=== PATIENT | female | born 1950 | race Caucasian/White ===

== ENCOUNTER 2020-06-07 15:01 | IRF | payer MEDICARE, OTHER, SELFPAY ==
[2020-06-07 15:05] VITALS: BP 115/59; PULSE 65; RESP 18; TEMP 36.4; O2SAT 95; BMI 28.4
--- NOTE | 2020-06-07 15:35 | ADMGEN ---
This patient, Poly Randle, was admitted to [facility] Room 222-02. Patient/family oriented to hospital policies and general routines including ID bracelet, bed and alarms, visiting hours, pain management, procedures, bathroom and other care routines, personal items, smoking policy, room service/diet, and visiting hours. Valuables list has been completed. Information on how to activate the Rapid Response Team has been discussed. Patient/Family are encouraged to report perceived risks to care and to ask questions if they do not understand what they are told or what they should do. Patient arrived via ambulance in no distress. She alert to person, place and time. Daughter is at bedside with her, but patients will be the designated visitor. Daughter is also medical POA Oriented to room and [facility] day to day activities, verbalized understanding
[2020-06-07 16:00] VITALS: BMI 28.4
[2020-06-07] MEDS: ATORVASTATIN 40 MG TABLET PO (20:10)
[2020-06-07 22:00] VITALS: BP 112/64; PULSE 69; RESP 18; TEMP 36.6; O2SAT 94
[2020-06-08 06:00] VITALS: BP 124/52; PULSE 69; RESP 20; TEMP 36.1; O2SAT 98
[2020-06-08 06:35] LABS: Basophils Percent Auto 0.4 % (0.2-1.2); Eosinophils Absolute Auto 0.2 K/mm3 (0-0.3); Eosinophils Percent Auto 2.3 % (0-4.4); Hematocrit 40.4 % (37.0-47.0); Hemoglobin 13.5 g/dL (12.0-15.0); Immature Granulocyte Absolute 0.02 K/mm3 (0.00-0.031); Immature Granulocyte Percent A 0.3 % (0-0.5); Lymphocytes Absolute Auto 3.06 K/mm3 (0.9-3.2); Lymphocytes Percent Auto 41.4 % (18.3-44.2); Mean Corpuscular HGB Conc 33.4 g/dl (32-36); Mean Corpuscular Hemoglobin 31.6 pg (26-34); Mean Corpuscular Volume 94.6 fl (80-100); Mean Platelet Volume 9.7 fl (7.4-10.4); Monocytes Absolute Auto 0.6 K/mm3 (0.1-0.6); Monocytes Percent Auto 8.5 % (2.6-8.5); Neutrophils Absolute Auto 3.5 K/mm3 (1.3-6.7); Neutrophils Percent Auto 47.1 % (45.5-73.1); Platelet Count Result 191 k/mm3 (150-375); Red Blood Count 4.27 M/mm3 (4.2-5.4); Red Cell Distribution Width 11.8 % (11.5-14.5); White Blood Count 7.4 K/mm3 (4.5-10.0)
[2020-06-08 06:39] LABS: Anion Gap 6 mmol/L (8-16); Blood Urea Nitrogen 22 mg/dL (7-17); Calcium 9.4 mg/dL (8.4-10.2); Carbon Dioxide 30 mmol/L (22-30); Chloride 104 mmol/L (98-107); Estimated CRCL calculation 47 ml/min; Estimated Glomerular Filt Rate > 60; Glucose 102 mg/dL (65-105); Potassium 4.1 mmol/L (3.4-5.0); Sodium 140 mmol/L (137-145)
[2020-06-08 08:00] VITALS: PULSE 68; RESP 20; O2SAT 99
[2020-06-08] MEDS: lisinopriL 10 MG TABLET PO (10:03)
[2020-06-08] MEDS: ASPIRIN 81 MG CHEWABLE TABLET PO (10:03)
[2020-06-08] MEDS: CHOLECALCIFEROL 1,000 UNITS TABLET 1000 UNITS PO (10:04)
[2020-06-08] MEDS: VITAMIN E 400 UNIT CAPSULE PO (10:04)
[2020-06-08] MEDS: MULTIVITAMINS /C LUTEIN (CENTRUM SILVER) TABLET *BKC 1 TAB PO (10:04)
[2020-06-08] MEDS: CLOPIDOGREL BISULFATE 75 MG TABLET PO (10:04)
--- NOTE | 2020-06-08 11:00 | PM.IMHP ---
H&P: HPI History of Present Illness Date/Time: 06/08/20 16:02 Chief complaint: cva Narrative: Poly Randle is a 70 year old female The primary rehab impairment category is stroke The/ diagnosis lacunar infarct in the right lentiform nucleus. The patient was seen [id number] at 11:00 a.m. on June 08, 2020 This 70-year-old woman with a past medical history of irritable bowel syndrome, GERD and osteoporosis who presented to [facility] on May 31, 2020 for an acute onset of left facial droop, left-sided weakness and aphasia. The head CT was without evidence of hemorrhage. Head and neck CTA did not show any obvious large vessel occlusions. Tele Neurology was consulted and recommended tPA. Following the tPA administration who was recommended by the tele neuro radiologist rather tele neurologist patient experience pain across her entire lower back. She was admitted to ICU with Neurology was consulted. Noncontrast CT of the abdomen /pelvis was notable for pancreatic stranding distended bladder small volume free fluid in the pelvis. A repeat head CT showed a subacute lacunar infarct in the right lentiform nucleus. The bats side swallow test evaluation of the patient demonstrated consistent clinical signs and symptoms of penetration /aspiration on 100% of thick and thin liquids. Liquid trials. This was followed up with modified barium swallow on June 03, 2020 and this showed mild oropharyngeal dysphagia or dysphagia characterized by the left facial weakness and occasional anterior loss. There is decreased laryngeal elevation / X question, incomplete epiglottic inversion, incomplete laryngeal vestibule closure, mild -severe pharyngeal residue with thin liquids watch assisting in clearing the severe residue. Only flash penetration observed at times no aspiration. Patient was placed on mechanically altered solids dysphagia level 2 and thin liquids. Speech therapy also encouraged frequent liquid wash to clear for Viktoriya residue. Physical residual include left facial droop, left-sided weakness, dysarthria and dysphagia. The patient is awake and alert x3. The patient will be discharged to [facility] and dual anti-platelet therapy of aspirin 80 milligram and Plavix for 3 weeks with plan to discontinue Plavix and the patient to remain on aspirin 81 milligram daily. Therapy was initiated at the acute care facility and the patient was transferred to us from [place] so fell on on June 07, 2020. The patient has had no major surgery in the past 10 days. Patient has had no falls in the past year. The patient has had no falls with injury in the past year Past medical history, arthritis, degenerative intervertebral thoracic disease, diverticulitis, irritable bowel syndrome, osteoporosis, a fusion of the right knee, gallbladder disease, GERD, him arthrosis, hiatal hernia, and paresthesia Past surgical history adenoidectomy and anal sphincteroplasty, appendectomy, back surgery, left breast lumpectomy x2, cardiac catheterization, bilateral cataract extraction, cholecystectomy, colonoscopy with several polyps removed, hysterectomy, repair of rectocele and tonsillectomy. Social history Patient is and spouse is name is ROSSI ruiz. They have 3 children. Patient is a retired [employer]. Patient enjoys exercising daily of yoga and walking on the treadmill. Patient denies alcohol tobacco or illicit use of drugs. Patient lives with her who had recent knee replacement in a store 1 story home with the basement and 3 steps to enter. Patient was totally independent prior to the stroke and in all spheres of activities of daily living. Family history, mother had Alzheimer's and CVA. Father had leukemia and so rest of the liver. Sister had breast cancer, leukemia, and brain cancer. Brother had colon cancer, diabetes, hypertension, and kidney disease. Current level of function, eating is partial moderate, oral care is partial mod
[2020-06-08 13:25] VITALS: BMI 28.4
[2020-06-08 14:00] VITALS: BP 129/70; PULSE 71; RESP 20; TEMP 36.8; O2SAT 99
--- NOTE | 2020-06-08 14:38 | PCNSR ---
On 06/08/20, the student, Tiffanie Whitmore, provided care and completed [facility] documentation on this patient. I have reviewed the student's documentation and agree with the findings.
[2020-06-08] MEDS: polyethylene glycoL 3350 17 GM POWD.PACK PO (14:53)
[2020-06-08] MEDS: ENOXAPARIN 40 MG/0.4 ML SYRINGE SUB-Q (18:46)
[2020-06-08 20:00] VITALS: PULSE 70; RESP 18; O2SAT 97
[2020-06-08] MEDS: ATORVASTATIN 40 MG TABLET PO (20:08)
[2020-06-08 21:40] VITALS: BP 115/40; PULSE 70; RESP 18; TEMP 36.4; O2SAT 97
[2020-06-09 05:03] VITALS: BP 118/56; PULSE 67; RESP 18; TEMP 36.2; O2SAT 97
[2020-06-09 05:29] LABS: Cholesterol 104 mg/dL (0-200); HDL Direct 42 mg/dL; Triglycerides 122 mg/dL (<150)
[2020-06-09 05:42] LABS: LDL Cholesterol Direct 49 mg/dL
[2020-06-09] MEDS: lisinopriL 10 MG TABLET PO (09:04)
[2020-06-09] MEDS: ENOXAPARIN 40 MG/0.4 ML SYRINGE SUB-Q (09:04)
[2020-06-09] MEDS: ASPIRIN 81 MG CHEWABLE TABLET PO (09:04)
[2020-06-09] MEDS: MULTIVITAMINS /C LUTEIN (CENTRUM SILVER) TABLET *BKC 1 TAB PO (09:04)
[2020-06-09] MEDS: CHOLECALCIFEROL 1,000 UNITS TABLET 1000 UNITS PO (09:04)
[2020-06-09] MEDS: CLOPIDOGREL BISULFATE 75 MG TABLET PO (09:04)
[2020-06-09] MEDS: polyethylene glycoL 3350 17 GM POWD.PACK PO (09:04)
[2020-06-09] MEDS: VITAMIN E 400 UNIT CAPSULE PO (09:05)
[2020-06-09 14:00] VITALS: BP 116/57; PULSE 76; RESP 20; TEMP 36.6; O2SAT 99
--- NOTE | 2020-06-09 14:54 | RPD ---
INDIVIDUALIZED PLAN OF CARE FOR Poly Randle Brief Synthesis of Pre-Admission Screen, Post-Admission Evaluation and Therapy Evaluations: The patient presents to rehab with a lacunar infarct in the right lentiform nucleus. Comorbidities include s/p tPA, dysphagia, left-sided facial droop, left-side hemiparesis, dysarthria, arthritis, degenerative disc disease, diverticulititis, irritable bowel syndrome, osteoporosis, and GERD. The complexity of the patient's medical management, nursing, and therapy needs require an inpatient rehab hospital stay with a physician-led interdisciplinary team approach. The patient?s needs will be best met in an intensive program vs. at a lower level of care. The patient requires physician services for neurology services, medical oversight, and coordination of care. The patient needs physician monitoring and treatment of hypertension, dysphagia, left-side hemiparesis, dysarthria, monitoring for adverse reactions to new medications, monitoring for infection, and pain control. The patient requires nursing services for frequent neuro checks, anticoagulation therapy, medication management and education, pressure relief and skin care management, monitoring of labs, bowel and bladder training, and fall/safety precautions. Deficits include:ADLs, Balance, Cognition, Endurance, Family Training/Education, Mobility, Pain Management, ROM, Safety, Speech, Strength, Swallowing, and Transfers. Pearler/Case Management for: Discharge Planning and Patient/Family Counseling Physical Therapy: 5 days per week for 75 minutes. Treatments may include: Therapeutic Exercise, Gait Training, Neuromuscular Re-education, Transfer Training, Community Reintegration, Bed Mobility, Patient/Family Education, Wheelchair Mobility Group Therapy/Concurrent Therapy Rationales: -Improve attention span during functional activities in a distracted environment. -Enhance problem solving and/or adequate judgment skills during functional activities in a distracted environment. -Promote increased safety awareness in a distracted environment to reduce fall risk with functional tasks, transfers, and ambulation to allow a more safe, self-sufficient return to the home environment. -Improve dynamic balance skills to promote safety and independence with functional activities in a distracted environment for maximum gain. Occupational Therapy: 5 days per week for 75 minutes. Treatments may include: Therapeutic Exercise, Therapeutic Activity, Cognitive Training, Self-Care Transfer Training, Community Reintegration, Home Management, Patient/Family Education, Wheelchair Mobility Training, Energy Conservation Training Group Therapy/Concurrent Therapy Rationales: -Allow therapist to observe and teach generalization and carry-over of skills learned in individual therapy. -Enhance problem solving and sequencing skills during therapeutic activities in a distracted environment. -Promote increased safety awareness in a realistic setting to reduce fall risk with functional tasks due to visual and verbal distractions. -Increase functional level with ADLs, ADL transfers and use of adaptive equipment through therapeutic activities with others while promoting safety to allow a more safe, self-sufficient return home. Speech Therapy: 5 days per week for 30 minutes. Treatments may include: Dysphasia Therapy, Speech/Language/Communication Therapy, Cognitive Training, Patient/Family Education Group Therapy/Concurrent Therapy - Rationale: -Allow therapist to observe and teach generalization and carry-over of skills learned in individual therapy. -Improve comprehension skills with complex or abstract ideas through discussion in a realistic setting. -Enhance problem solving skills with complex issues during activities in a distracted environment. -Promote increased memory skills and concentration in a distracted environment for a safe transition home. -Improve attention and focus with language/communicatio
[2020-06-09] MEDS: ATORVASTATIN 40 MG TABLET PO (20:38)
[2020-06-09 22:00] VITALS: BP 115/48; PULSE 77; RESP 17; TEMP 36.7; O2SAT 100
[2020-06-10 06:00] VITALS: BP 123/48; PULSE 75; RESP 18; TEMP 36.3; O2SAT 96
[2020-06-10 08:30] VITALS: PULSE 76; RESP 18; O2SAT 96
[2020-06-10] MEDS: CLOPIDOGREL BISULFATE 75 MG TABLET PO (08:30)
[2020-06-10] MEDS: CHOLECALCIFEROL 1,000 UNITS TABLET 1000 UNITS PO (08:30)
[2020-06-10] MEDS: VITAMIN E 400 UNIT CAPSULE PO (08:30)
[2020-06-10] MEDS: MULTIVITAMINS /C LUTEIN (CENTRUM SILVER) TABLET *BKC 1 TAB PO (08:30)
[2020-06-10] MEDS: ASPIRIN 81 MG CHEWABLE TABLET PO (08:30)
[2020-06-10] MEDS: polyethylene glycoL 3350 17 GM POWD.PACK PO (08:30)
[2020-06-10] MEDS: lisinopriL 10 MG TABLET PO (08:31)
[2020-06-10] MEDS: ENOXAPARIN 40 MG/0.4 ML SYRINGE SUB-Q (08:31)
--- NOTE | 2020-06-10 11:59 | WPDNEURORHBP ---
Subjective Date/time seen: 06/10/20 11:59 Interval history: this 70-year-old woman is here with left-sided hemiparesis after having had stroke she has relatively more strength in the left leg compared to the left arm and we will start the electrical stimulation she denies any headache nausea vomiting chest pain shortness of breath fever chills sore throat Review of Systems Review of Systems: All systems reviewed & are unremarkable except as noted in HPI and below Functional Status Ambulation Ability Ability to Ambulate 10 Feet: Minimum Assistance X 1 Ability to Ambulate 50 Feet With 2 Turns: Minimum Assistance X 1 Ambulation Assistive Devices: Cane, Eb Exam Const: General: comfortable and no acute distress HENMT: General nose exam: Normal nares present Mouth: Yes moist mucous membranes Eyes: General: appearance normal, both eyes and all related structures Neck: Neck: supple and no JVD Resp: Effort & Inspection: normal respiratory effort Auscultation: clear to auscultation bilaterally Cardio: Rate: regular rate Rhythm: regular rhythm GI: GI Palp: Yes Soft to palpation Auscultation: normal bowel sounds Skin: General skin exam: normal color and no rashes or lesions noted Neuro: Other: patient is awake and alert well oriented follows all commands with moderately severe left-sided hemiparesis needing assistance in all the activities of daily living Extrem: General: normal to inspection Psych: Mental Status: mental status grossly normal Objective Data Vital Signs Vital Signs: Vital Signs - 24 hr 06/09/20 14:00 06/09/20 22:00 06/10/20 06:00 Temperature 36.6 C 36.7 C 36.3 C L Pulse Rate 76 77 75 Respiratory Rate 20 17 18 Blood Pressure 116/57 L 115/48 L 123/48 L Pulse Oximetry 99 100 96 06/10/20 08:30 Temperature Pulse Rate 76 Respiratory Rate 18 Blood Pressure Pulse Oximetry 96 Intake/Output Intake/Output: Intake & Output 06/07/20 06/08/20 06/09/20 06/10/20 23:59 23:59 23:59 23:59 Intake Total 720 720 240 Balance 720 720 240 Meds/Results Medications: Active Medications Generic Name Dose Route Start Last Admin Trade Name Freq PRN Reason Stop Dose Admin Aspirin 81 mg 06/08/20 09:00 06/10/20 08:30 Aspirin Chewable PO 81 mg DAILY RJ Administration Atorvastatin Calcium 40 mg 06/07/20 21:00 06/09/20 20:38 Lipitor PO 40 mg HS RJ Administration Clopidogrel Bisulfate 75 mg 06/08/20 09:00 06/10/20 08:30 Plavix PO 75 mg DAILY RJ Administration Enoxaparin Sodium 40 mg 06/09/20 09:00 06/10/20 08:31 Lovenox SUB-Q 40 mg DAILY RJ Administration Lisinopril 10 mg 06/08/20 09:00 06/10/20 08:31 Prinivil PO 10 mg DAILY RJ Administration Multivitamins/Minerals 1 tab 06/08/20 09:00 06/10/20 08:30 Centrum Silver PO 1 tab DAILY RJ Administration Polyethylene Glycol 17 gm 06/08/20 09:00 06/10/20 08:30 Miralax PO 17 gm QAM RJ Administration Vitamin D 1,000 units 06/08/20 09:00 06/10/20 08:30 Vitamin D PO 1,000 units DAILY RJ Administration Vitamin E 400 unit 06/08/20 09:00 06/10/20 08:30 Vitamin E PO 07/08/20 09:01 400 unit DAILY RJ Administration Progress Note: A&P Assessment and Plan (1) GERD (gastroesophageal reflux disease): Code(s): K21.9 - Gastro-esophageal reflux disease without esophagitis Status: Acute (2) Irritable bowel syndrome: Code(s): K58.9 - Irritable bowel syndrome without diarrhea Status: Acute (3) Dysarthria: Code(s): R47.1 - Dysarthria and anarthria Status: Acute (4) Left hemiparesis: Code(s): G81.94 - Hemiplegia, unspecified affecting left nondominant side Status: Acute (5) Stroke: Code(s): I63.9 - Cerebral infarction, unspecified Status: Acute Additional Plan we will continue the medical management PT OT and speech
[2020-06-10 14:00] VITALS: BP 132/57; PULSE 78; RESP 18; TEMP 36.3; O2SAT 97
[2020-06-10 20:00] VITALS: O2SAT 98
[2020-06-10] MEDS: ATORVASTATIN 40 MG TABLET PO (20:29)
[2020-06-10 21:47] VITALS: BP 117/87; PULSE 75; RESP 18; TEMP 36.7; O2SAT 98
[2020-06-11 06:00] VITALS: BP 119/52; PULSE 75; RESP 18; TEMP 36.3; O2SAT 98
[2020-06-11] MEDS: ASPIRIN 81 MG CHEWABLE TABLET PO (08:57)
[2020-06-11] MEDS: CLOPIDOGREL BISULFATE 75 MG TABLET PO (08:57)
[2020-06-11] MEDS: CHOLECALCIFEROL 1,000 UNITS TABLET 1000 UNITS PO (08:57)
[2020-06-11] MEDS: ENOXAPARIN 40 MG/0.4 ML SYRINGE SUB-Q (08:57)
[2020-06-11] MEDS: polyethylene glycoL 3350 17 GM POWD.PACK PO (08:58)
[2020-06-11] MEDS: MULTIVITAMINS /C LUTEIN (CENTRUM SILVER) TABLET *BKC 1 TAB PO (08:58)
[2020-06-11] MEDS: lisinopriL 10 MG TABLET PO (08:58)
[2020-06-11] MEDS: VITAMIN E 400 UNIT CAPSULE PO (08:58)
[2020-06-11 14:00] VITALS: BP 121/90; PULSE 65; RESP 18; TEMP 36.3; O2SAT 98
[2020-06-11 20:00] VITALS: O2SAT 99
[2020-06-11] MEDS: ATORVASTATIN 40 MG TABLET PO (20:15)
[2020-06-11] MEDS: ACETAMINOPHEN 500 MG TABLET PO (20:28)
[2020-06-11 21:57] VITALS: BP 138/37; PULSE 77; RESP 16; TEMP 36.7; O2SAT 99
[2020-06-12 06:00] VITALS: BP 108/47; PULSE 69; RESP 16; TEMP 36; O2SAT 95
[2020-06-12] MEDS: CHOLECALCIFEROL 1,000 UNITS TABLET 1000 UNITS PO (08:51)
[2020-06-12] MEDS: CLOPIDOGREL BISULFATE 75 MG TABLET PO (08:51)
[2020-06-12] MEDS: ASPIRIN 81 MG CHEWABLE TABLET PO (08:51)
[2020-06-12] MEDS: MULTIVITAMINS /C LUTEIN (CENTRUM SILVER) TABLET *BKC 1 TAB PO (08:52)
[2020-06-12] MEDS: lisinopriL 10 MG TABLET PO (08:52)
[2020-06-12] MEDS: ENOXAPARIN 40 MG/0.4 ML SYRINGE SUB-Q (08:52)
[2020-06-12] MEDS: polyethylene glycoL 3350 17 GM POWD.PACK PO (08:52)
[2020-06-12] MEDS: VITAMIN E 400 UNIT CAPSULE PO (08:52)
[2020-06-12 14:00] VITALS: BP 133/94; PULSE 85; RESP 20; TEMP 36.7; O2SAT 96
--- NOTE | 2020-06-12 17:11 | WPDNEURORHBP ---
Subjective Date/time seen: 06/12/20 17:11 Interval history: this 70-year-old is here with stroke and the left-sided hemiparesis from which she is improving she is happy with the progress however the left arm is not progressing as well as the left leg she denies any headache nausea vomiting chest pain shortness of breath fever chills sore throat Review of Systems Review of Systems: All systems reviewed & are unremarkable except as noted in HPI and below Functional Status Ambulation Ability Ability to Ambulate 10 Feet: Moderate Assistance X 1 Ability to Ambulate 50 Feet With 2 Turns: Minimum Assistance X 1 Ambulation Assistive Devices: Cane, Eb Transfers Ability Ability to Transfer In/Out of Chair: Minimum Assistance X 1 Exam Const: General: comfortable and no acute distress HENMT: General nose exam: Normal nares present Mouth: Yes moist mucous membranes Eyes: General: appearance normal, both eyes and all related structures Neck: Neck: supple and no JVD Resp: Effort & Inspection: normal respiratory effort Auscultation: clear to auscultation bilaterally Cardio: Rate: regular rate Rhythm: regular rhythm GI: GI Palp: Yes Soft to palpation Auscultation: normal bowel sounds Skin: General skin exam: normal color and no rashes or lesions noted Neuro: Other: patient is awake and alert well oriented with improving eb hemiparesis Extrem: General: normal to inspection Psych: Mental Status: mental status grossly normal Objective Data Vital Signs Vital Signs: Vital Signs - 24 hr 06/11/20 20:00 06/11/20 21:57 06/12/20 06:00 Temperature 36.7 C 36.0 C L Pulse Rate 77 69 Respiratory Rate 16 16 Blood Pressure 138/37 L 108/47 L Pulse Oximetry 99 99 95 06/12/20 14:00 Temperature 36.7 C Pulse Rate 85 Respiratory Rate 20 Blood Pressure 133/94 H Pulse Oximetry 96 Intake/Output Intake/Output: Intake & Output 06/09/20 06/10/20 06/11/20 06/12/20 23:59 23:59 23:59 23:59 Intake Total 720 720 720 480 Balance 720 720 720 480 Meds/Results Medications: Active Medications Generic Name Dose Route Start Last Admin Trade Name Freq PRN Reason Stop Dose Admin Acetaminophen 500 mg 06/11/20 20:19 06/11/20 20:28 Tylenol Tablet PO 500 mg Q6H PRN Administration Mild Pain (1-3) or Fever Aspirin 81 mg 06/08/20 09:00 06/12/20 08:51 Aspirin Chewable PO 81 mg DAILY RJ Administration Atorvastatin Calcium 40 mg 06/07/20 21:00 06/11/20 20:15 Lipitor PO 40 mg HS RJ Administration Clopidogrel Bisulfate 75 mg 06/08/20 09:00 06/12/20 08:51 Plavix PO 75 mg DAILY RJ Administration Enoxaparin Sodium 40 mg 06/09/20 09:00 06/12/20 08:52 Lovenox SUB-Q 40 mg DAILY RJ Administration Lisinopril 10 mg 06/08/20 09:00 06/12/20 08:52 Prinivil PO 10 mg DAILY RJ Administration Multivitamins/Minerals 1 tab 06/08/20 09:00 06/12/20 08:52 Centrum Silver PO 1 tab DAILY RJ Administration Polyethylene Glycol 17 gm 06/08/20 09:00 06/12/20 08:52 Miralax PO 17 gm QAM RJ Administration Vitamin D 1,000 units 06/08/20 09:00 06/12/20 08:51 Vitamin D PO 1,000 units DAILY RJ Administration Vitamin E 400 unit 06/08/20 09:00 06/12/20 08:52 Vitamin E PO 07/08/20 09:01 400 unit DAILY RJ Administration Progress Note: A&P Assessment and Plan (1) GERD (gastroesophageal reflux disease): Code(s): K21.9 - Gastro-esophageal reflux disease without esophagitis Status: Acute (2) Irritable bowel syndrome: Code(s): K58.9 - Irritable bowel syndrome without diarrhea Status: Acute (3) Dysarthria: Code(s): R47.1 - Dysarthria and anarthria Status: Acute (4) Left hemiparesis: Code(s): G81.94 - Hemiplegia, unspecified affecting left nondominant side Status: Acute (5) Stroke: Code(s): I63.9 - Cerebral infarction, unspecified Status: Acute Additional Plan
[2020-06-12 20:00] VITALS: PULSE 85; RESP 20; O2SAT 96
[2020-06-12] MEDS: ATORVASTATIN 40 MG TABLET PO (20:30)
[2020-06-12 21:04] VITALS: BP 121/54; PULSE 84; RESP 18; TEMP 36.6; O2SAT 97
[2020-06-13 05:44] VITALS: BP 118/46; PULSE 68; RESP 18; TEMP 36.4; O2SAT 97
[2020-06-13] MEDS: CHOLECALCIFEROL 1,000 UNITS TABLET 1000 UNITS PO (09:13)
[2020-06-13] MEDS: polyethylene glycoL 3350 17 GM POWD.PACK PO (09:13)
[2020-06-13] MEDS: MULTIVITAMINS /C LUTEIN (CENTRUM SILVER) TABLET *BKC 1 TAB PO (09:13)
[2020-06-13] MEDS: ASPIRIN 81 MG CHEWABLE TABLET PO (09:13)
[2020-06-13] MEDS: VITAMIN E 400 UNIT CAPSULE PO (09:13)
[2020-06-13] MEDS: lisinopriL 10 MG TABLET PO (09:13)
[2020-06-13] MEDS: ENOXAPARIN 40 MG/0.4 ML SYRINGE SUB-Q (09:13)
[2020-06-13] MEDS: CLOPIDOGREL BISULFATE 75 MG TABLET PO (09:13)
--- NOTE | 2020-06-13 10:40 | WPDNEURORHBP ---
Subjective Date/time seen: 06/13/20 10:40 70 years old lady with right lentiform nucleus lacunar infarct in addition to the diagnosis of 1. Irritable bowel syndrome 2. GERD 3. Osteoporosis. Routine lab is normal Review of Systems Review of Systems: All systems reviewed & are unremarkable except as noted in HPI and below Functional Status Ambulation Ability Ability to Ambulate 10 Feet: Moderate Assistance X 1 Ability to Ambulate 50 Feet With 2 Turns: Minimum Assistance X 1 Ambulation Assistive Devices: Cane, Eb Transfers Ability Ability to Transfer In/Out of Chair: Minimum Assistance X 1 Exam Narrative: Exam Narrative: examination today reveals her to be awake alert comfortable and in no acute distress. Ear nose throat examination is normal with normal and moist mucous membranes without any drainage. Eyes examination is normal. Neck is supple with no JVD full range of motion. Respiration clear with no rhonchi or crepitation. Heart regular. Abdomen is soft with normal bowel sounds. His skin clear. Neurological examination reveals her to be awake alert oriented with improving hemiparesis Objective Data Vital Signs Vital Signs: Vital Signs - 24 hr 06/12/20 14:00 06/12/20 20:00 06/12/20 21:04 Temperature 36.7 C 36.6 C Pulse Rate 85 85 84 Respiratory Rate 20 20 18 Blood Pressure 133/94 H 121/54 L Pulse Oximetry 96 96 97 06/13/20 05:44 Temperature 36.4 C Pulse Rate 68 Respiratory Rate 18 Blood Pressure 118/46 L Pulse Oximetry 97 Intake/Output Intake/Output: Intake & Output 06/10/20 06/11/20 06/12/20 06/13/20 23:59 23:59 23:59 23:59 Intake Total 720 720 720 240 Balance 720 720 720 240 Meds/Results Medications: Active Medications Generic Name Dose Route Start Last Admin Trade Name Freq PRN Reason Stop Dose Admin Acetaminophen 500 mg 06/11/20 20:19 06/11/20 20:28 Tylenol Tablet PO 500 mg Q6H PRN Administration Mild Pain (1-3) or Fever Aspirin 81 mg 06/08/20 09:00 06/13/20 09:13 Aspirin Chewable PO 81 mg DAILY RJ Administration Atorvastatin Calcium 40 mg 06/07/20 21:00 06/12/20 20:30 Lipitor PO 40 mg HS RJ Administration Clopidogrel Bisulfate 75 mg 06/08/20 09:00 06/13/20 09:13 Plavix PO 75 mg DAILY RJ Administration Enoxaparin Sodium 40 mg 06/09/20 09:00 06/13/20 09:13 Lovenox SUB-Q 40 mg DAILY RJ Administration Lisinopril 10 mg 06/08/20 09:00 06/13/20 09:13 Prinivil PO 10 mg DAILY RJ Administration Multivitamins/Minerals 1 tab 06/08/20 09:00 06/13/20 09:13 Centrum Silver PO 1 tab DAILY RJ Administration Polyethylene Glycol 17 gm 06/08/20 09:00 06/13/20 09:13 Miralax PO 17 gm QAM RJ Administration Vitamin D 1,000 units 06/08/20 09:00 06/13/20 09:13 Vitamin D PO 1,000 units DAILY RJ Administration Vitamin E 400 unit 06/08/20 09:00 06/13/20 09:13 Vitamin E PO 07/08/20 09:01 400 unit DAILY RJ Administration Progress Note: A&P Assessment and Plan (1) GERD (gastroesophageal reflux disease): Code(s): K21.9 - Gastro-esophageal reflux disease without esophagitis Status: Acute (2) Irritable bowel syndrome: Code(s): K58.9 - Irritable bowel syndrome without diarrhea Status: Acute (3) Dysarthria: Code(s): R47.1 - Dysarthria and anarthria Status: Acute (4) Left hemiparesis: Code(s): G81.94 - Hemiplegia, unspecified affecting left nondominant side Status: Acute (5) Stroke: Code(s): I63.9 - Cerebral infarction, unspecified Status: Acute Additional Plan will continue with the same treatment
--- NOTE | 2020-06-13 10:58 | PCPTNOTE ---
Poly Randle was evaluated for a arianna cane on 06/13/2020 by this physical therapist radiology physician assistant. The arianna cane will resolve patient's mobility limitations and will be used for ADL's within the home. The patient can safely use the arianna cane. ?The arianna cane will resolve the patient?s mobility deficits, including impaired balance, decreased strength and endurance.
--- NOTE | 2020-06-13 13:31 | PCNFU ---
Nutrition Follow-Up Complete: Predicted excessive nutrient intake of sodium and saturated fats related to cardiovascular integrity as evidenced by cerebral vascular accident incident. Pt. will adhere to sodium, potassium and fat intake recommendations from national guidelines. Pt. will understand DASH meal pattern recommendation. Goal: in progress Pt current diet, regular, is appropriate. However, recommending heart healthy diet prison to reduce CVA risk. Last recorded weight is 66.1 kg. Bowel Motility: last documented bowel movement on 06/12/20 Labs Reviewed: Hgb (13.5), Hct (40.4), Na (14), K (4.1), BUN (22) Meds Noted: Miralax, Lovenox, Plavix, Lipitor Additional Notes: Recommend new recording of labs and weight since admission for better assessment. Will provide CVA education to pt. prior to discharge. Follow up in 7 days.
[2020-06-13 14:00] VITALS: BP 120/57; PULSE 69; RESP 18; TEMP 36.2; O2SAT 98
--- NOTE | 2020-06-13 14:46 | PCNSR ---
On 06/13/20, the student, Tiffanie Whitmore, provided care and completed [facility] documentation on this patient. I have reviewed the student's documentation and agree with the findings.
[2020-06-13] MEDS: ATORVASTATIN 40 MG TABLET PO (20:26)
[2020-06-13] MEDS: ACETAMINOPHEN 500 MG TABLET PO (20:27)
[2020-06-13 22:00] VITALS: BP 131/56; PULSE 72; RESP 17; TEMP 36.2; O2SAT 98
[2020-06-14 06:00] VITALS: BP 121/48; PULSE 66; RESP 17; TEMP 36.2; O2SAT 97
[2020-06-14] MEDS: lisinopriL 10 MG TABLET PO (10:41)
[2020-06-14] MEDS: CHOLECALCIFEROL 1,000 UNITS TABLET 1000 UNITS PO (10:41)
[2020-06-14] MEDS: CLOPIDOGREL BISULFATE 75 MG TABLET PO (10:41)
[2020-06-14] MEDS: ASPIRIN 81 MG CHEWABLE TABLET PO (10:41)
[2020-06-14] MEDS: MULTIVITAMINS /C LUTEIN (CENTRUM SILVER) TABLET *BKC 1 TAB PO (10:42)
[2020-06-14] MEDS: VITAMIN E 400 UNIT CAPSULE PO (10:42)
--- NOTE | 2020-06-14 13:05 | WPDNEURORHBP ---
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 the patient and the daughter were on tele conference with us this morning and were given the reports she is doing fairly well making progress and the report from the nurse the occupational therapist speech therapist and physical therapist is quite good and she is walking about 260 feet and we will discontinue the Lovenox at this point she is using the him a cane and possibly might need shower bench for home she denies any headache nausea vomiting chest pain shortness of breath fever chills sore throat Review of Systems Review of Systems: All systems reviewed & are unremarkable except as noted in HPI and below Functional Status Ambulation Ability Ability to Ambulate 10 Feet: Contact Guard Ability to Ambulate 50 Feet With 2 Turns: Contact Guard Ability to Ambulate 150 Feet: Minimum Assistance X 1 Ambulation Assistive Devices: Cane, Eb Transfers Ability Ability to Transfer In/Out of Chair: Minimum Assistance X 1 Exam Const: General: comfortable and no acute distress HENMT: General nose exam: Normal nares present Mouth: Yes moist mucous membranes Eyes: General: appearance normal, both eyes and all related structures Neck: Neck: supple and no JVD Resp: Effort & Inspection: normal respiratory effort Auscultation: clear to auscultation bilaterally Cardio: Rate: regular rate Rhythm: regular rhythm GI: GI Palp: Yes Soft to palpation Auscultation: normal bowel sounds Skin: General skin exam: normal color and no rashes or lesions noted Neuro: Other: the patient is awake alert well oriented follows all commands quite well left-sided hemiparesis is improving she walked at 260 feet with a eb cane Extrem: General: normal to inspection Psych: Mental Status: mental status grossly normal Objective Data Vital Signs Vital Signs: Vital Signs - 24 hr 06/13/20 14:00 06/13/20 22:00 06/14/20 06:00 Temperature 36.2 C L 36.2 C L 36.2 C L Pulse Rate 69 72 66 Respiratory Rate 18 17 17 Blood Pressure 120/57 L 131/56 L 121/48 L Pulse Oximetry 98 98 97 Intake/Output Intake/Output: Intake & Output 06/11/20 06/12/20 06/13/20 06/14/20 23:59 23:59 23:59 23:59 Intake Total 720 720 960 240 Balance 720 720 960 240 Meds/Results Medications: Active Medications Generic Name Dose Route Start Last Admin Trade Name Freq PRN Reason Stop Dose Admin Acetaminophen 500 mg 06/11/20 20:19 06/13/20 20:27 Tylenol Tablet PO 500 mg Q6H PRN Administration Mild Pain (1-3) or Fever Aspirin 81 mg 06/08/20 09:00 06/14/20 10:41 Aspirin Chewable PO 81 mg DAILY RJ Administration Atorvastatin Calcium 40 mg 06/07/20 21:00 06/13/20 20:26 Lipitor PO 40 mg HS RJ Administration Clopidogrel Bisulfate 75 mg 06/08/20 09:00 06/14/20 10:41 Plavix PO 75 mg DAILY RJ Administration Lisinopril 10 mg 06/08/20 09:00 06/14/20 10:41 Prinivil PO 10 mg DAILY RJ Administration Multivitamins/Minerals 1 tab 06/08/20 09:00 06/14/20 10:42 Centrum Silver PO 1 tab DAILY RJ Administration Polyethylene Glycol 17 gm 06/08/20 09:00 06/13/20 09:13 Miralax PO 17 gm QAM RJ Administration Vitamin D 1,000 units 06/08/20 09:00 06/14/20 10:41 Vitamin D PO 1,000 units DAILY RJ Administration Vitamin E 400 unit 06/08/20 09:00 06/14/20 10:42 Vitamin E PO 07/08/20 09:01 400 unit DAILY RJ Administration Progress Note: A&P Assessment and Plan (1) GERD (gastroesophageal reflux disease): Code(s): K21.9 - Gastro-esophageal reflux disease without esophagitis Status: Acute (2) Irritable bowel syndrome: Code(s): K58.9 - Irritable bowel syndrome without diarrhea Status: Acute (3) Dysarthria: Code(s): R47.1 - Dysarthria and anarthria Status: Acute (4) Left hemiparesis: Code(s):
[2020-06-14 14:00] VITALS: BP 117/46; PULSE 74; RESP 16; TEMP 36.8; O2SAT 97
[2020-06-14] MEDS: polyethylene glycoL 3350 17 GM POWD.PACK PO (17:11)
[2020-06-14 20:00] VITALS: PULSE 81; RESP 14; O2SAT 98
[2020-06-14 21:11] VITALS: BP 142/51; PULSE 81; RESP 14; TEMP 36.4; O2SAT 98
[2020-06-14] MEDS: ATORVASTATIN 40 MG TABLET PO (21:39)
[2020-06-14] MEDS: ACETAMINOPHEN 500 MG TABLET PO (21:42)
[2020-06-15 05:19] LABS: Basophils Percent Auto 0.7 % (0.2-1.2); Eosinophils Absolute Auto 0.2 K/mm3 (0-0.3); Eosinophils Percent Auto 2.6 % (0-4.4); Hematocrit 39.3 % (37.0-47.0); Hemoglobin 13.5 g/dL (12.0-15.0); Immature Granulocyte Absolute 0.02 K/mm3 (0.00-0.031); Immature Granulocyte Percent A 0.3 % (0-0.5); Lymphocytes Absolute Auto 2.13 K/mm3 (0.9-3.2); Lymphocytes Percent Auto 34.6 % (18.3-44.2); Mean Corpuscular HGB Conc 34.4 g/dl (32-36); Mean Corpuscular Hemoglobin 32.2 pg (26-34); Mean Corpuscular Volume 93.8 fl (80-100); Mean Platelet Volume 9.5 fl (7.4-10.4); Monocytes Absolute Auto 0.5 K/mm3 (0.1-0.6); Monocytes Percent Auto 8.1 % (2.6-8.5); Neutrophils Absolute Auto 3.3 K/mm3 (1.3-6.7); Neutrophils Percent Auto 53.7 % (45.5-73.1); Platelet Count Result 216 k/mm3 (150-375); Red Blood Count 4.19 M/mm3 (4.2-5.4); Red Cell Distribution Width 11.7 % (11.5-14.5); White Blood Count 6.2 K/mm3 (4.5-10.0)
[2020-06-15 05:25] VITALS: BP 133/54; PULSE 74; RESP 16; TEMP 36.5; O2SAT 99
[2020-06-15 05:30] LABS: Anion Gap 8 mmol/L (8-16); Blood Urea Nitrogen 22 mg/dL (7-17); Calcium 9.7 mg/dL (8.4-10.2); Carbon Dioxide 31 mmol/L (22-30); Chloride 104 mmol/L (98-107); Estimated CRCL calculation 47 ml/min; Estimated Glomerular Filt Rate > 60; Glucose 112 mg/dL (65-105); Potassium 4.7 mmol/L (3.4-5.0); Sodium 143 mmol/L (137-145)
[2020-06-15] MEDS: lisinopriL 10 MG TABLET PO (09:08)
[2020-06-15] MEDS: ASPIRIN 81 MG CHEWABLE TABLET PO (09:08)
[2020-06-15] MEDS: MULTIVITAMINS /C LUTEIN (CENTRUM SILVER) TABLET *BKC 1 TAB PO (09:08)
[2020-06-15] MEDS: CHOLECALCIFEROL 1,000 UNITS TABLET 1000 UNITS PO (09:08)
[2020-06-15] MEDS: CLOPIDOGREL BISULFATE 75 MG TABLET PO (09:08)
[2020-06-15] MEDS: VITAMIN E 400 UNIT CAPSULE PO (09:08)
[2020-06-15] MEDS: polyethylene glycoL 3350 17 GM POWD.PACK PO (09:09)
--- NOTE | 2020-06-15 13:13 | PCNSR ---
On 06/15/20, the student, Tiffanie Whitmore, provided care and completed [facility] documentation on this patient. I have reviewed the student's documentation and agree with the findings.
[2020-06-15 14:00] VITALS: BP 116/56; PULSE 73; RESP 18; TEMP 36.8; O2SAT 98
--- NOTE | 2020-06-15 15:05 | WPDNEURORHBP ---
Subjective Date/time seen: 06/15/20 15:05 Interval history: this 70-year-old is here with left-sided hemiparesis moving forward doing very well denies any headache nausea vomiting chest pain shortness of breath fever chills sore throat Review of Systems Review of Systems: All systems reviewed & are unremarkable except as noted in HPI and below Functional Status Ambulation Ability Ability to Ambulate 10 Feet: Contact Guard Ability to Ambulate 50 Feet With 2 Turns: Contact Guard Ability to Ambulate 150 Feet: Minimum Assistance X 1 Ambulation Assistive Devices: Cane, Eb Transfers Ability Ability to Transfer In/Out of Chair: Minimum Assistance X 1 Exam Const: General: comfortable and no acute distress HENMT: General nose exam: Normal nares present Mouth: Yes moist mucous membranes Eyes: General: appearance normal, both eyes and all related structures Neck: Neck: supple and no JVD Resp: Effort & Inspection: normal respiratory effort Auscultation: clear to auscultation bilaterally Cardio: Rate: regular rate Rhythm: regular rhythm GI: GI Palp: Yes Soft to palpation Auscultation: normal bowel sounds Skin: General skin exam: normal color and no rashes or lesions noted Neuro: Other: patient is awake and alert well oriented in good spirits making progress left-sided hemiparesis is improvement Extrem: General: normal to inspection Psych: Mental Status: mental status grossly normal Objective Data Vital Signs Vital Signs: Vital Signs - 24 hr 06/14/20 20:00 06/14/20 21:11 06/15/20 05:25 Temperature 36.4 C 36.5 C Pulse Rate 81 81 74 Respiratory Rate 14 14 16 Blood Pressure 142/51 H 133/54 L Pulse Oximetry 98 98 99 Intake/Output Intake/Output: Intake & Output 06/12/20 06/13/20 06/14/20 06/15/20 23:59 23:59 23:59 23:59 Intake Total 720 960 680 240 Balance 720 960 680 240 Meds/Results Medications: Active Medications Generic Name Dose Route Start Last Admin Trade Name Freq PRN Reason Stop Dose Admin Acetaminophen 500 mg 06/11/20 20:19 06/14/20 21:42 Tylenol Tablet PO 500 mg Q6H PRN Administration Mild Pain (1-3) or Fever Aspirin 81 mg 06/08/20 09:00 06/15/20 09:08 Aspirin Chewable PO 81 mg DAILY RJ Administration Atorvastatin Calcium 40 mg 06/07/20 21:00 06/14/20 21:39 Lipitor PO 40 mg HS RJ Administration Clopidogrel Bisulfate 75 mg 06/08/20 09:00 06/15/20 09:08 Plavix PO 75 mg DAILY RJ Administration Lisinopril 10 mg 06/08/20 09:00 06/15/20 09:08 Prinivil PO 10 mg DAILY RJ Administration Multivitamins/Minerals 1 tab 06/08/20 09:00 06/15/20 09:08 Centrum Silver PO 1 tab DAILY RJ Administration Polyethylene Glycol 17 gm 06/08/20 09:00 06/15/20 09:09 Miralax PO 17 gm QAM RJ Administration Vitamin D 1,000 units 06/08/20 09:00 06/15/20 09:08 Vitamin D PO 1,000 units DAILY RJ Administration Vitamin E 400 unit 06/08/20 09:00 06/15/20 09:08 Vitamin E PO 07/08/20 09:01 400 unit DAILY RJ Administration Labs Labs: Laboratory Results - last 24 hr 06/15/20 06/15/20 04:57 04:57 WBC 6.2 RBC 4.19 L Hgb 13.5 Hct 39.3 MCV 93.8 MCH 32.2 MCHC 34.4 RDW 11.7 Plt Count 216 MPV 9.5 Immature Gran % (Auto) 0.3 Neut % (Auto) 53.7 Lymph % (Auto) 34.6 [place] % (Auto) 8.1 Eos % (Auto) 2.6 Baso % (Auto) 0.7 Lymph # (Auto) 2.13 [place] # (Auto) 0.5 Eos # (Auto) 0.2 Baso # (Auto) 0.0 Abs Immat Gran (auto) 0.02 Absolute Neuts (auto) 3.3 Absolute Nucleated RBC 0.0 Nucleated RBC % 0.0 Sodium 143 Potassium 4.7 Chloride 104 Carbon Dioxide 31 H Anion Gap 8 BUN 22 H Creatinine 0.80 Estim Creat Clear Calc 47 Estimated GFR > 60 Glucose 112 H Calcium 9.7 Progress Note: A&P Assessment and Plan (1) GERD (gastroesophageal reflux disease): Code(s): K21.9 - Gastro-esophageal reflux disease without esoph
[2020-06-15 20:00] VITALS: PULSE 69; RESP 18; O2SAT 97
[2020-06-15] MEDS: ATORVASTATIN 40 MG TABLET PO (20:25)
[2020-06-15] MEDS: ACETAMINOPHEN 500 MG TABLET PO (20:30)
[2020-06-15 22:00] VITALS: BP 125/46; PULSE 69; RESP 18; TEMP 36.3; O2SAT 97
[2020-06-16 06:00] VITALS: BP 146/62; PULSE 73; RESP 20; TEMP 36.7; O2SAT 98
[2020-06-16] MEDS: MULTIVITAMINS /C LUTEIN (CENTRUM SILVER) TABLET *BKC 1 TAB PO (08:49)
[2020-06-16] MEDS: CLOPIDOGREL BISULFATE 75 MG TABLET PO (08:49)
[2020-06-16] MEDS: VITAMIN E 400 UNIT CAPSULE PO (08:49)
[2020-06-16] MEDS: CHOLECALCIFEROL 1,000 UNITS TABLET 1000 UNITS PO (08:49)
[2020-06-16] MEDS: lisinopriL 10 MG TABLET PO (08:49)
[2020-06-16] MEDS: ASPIRIN 81 MG CHEWABLE TABLET PO (08:49)
[2020-06-16] MEDS: polyethylene glycoL 3350 17 GM POWD.PACK PO (08:50)
--- NOTE | 2020-06-16 10:48 | WPDNEURORHBP ---
Subjective Date/time seen: 06/16/20 10:48 Interval history: This 70-year-old woman is here with left hemiparesis doing remarkably well walking quite a bit. She denies any headache nausea vomiting chest pain shortness of breath fever chills sore throat she is a and is in title for the 's benefit and I will summarize it in my additional plan patient does not have any specific questions and she is doing very well Review of Systems Review of Systems: All systems reviewed & are unremarkable except as noted in HPI and below Functional Status Ambulation Ability Ability to Ambulate 10 Feet: Contact Guard Ability to Ambulate 50 Feet With 2 Turns: Contact Guard Ability to Ambulate 150 Feet: Minimum Assistance X 1 Ambulation Assistive Devices: Cane, Eb Transfers Ability Ability to Transfer In/Out of Chair: Minimum Assistance X 1 Exam Const: General: cooperative, healthy appearing, comfortable and well developed HENMT: Head: normal to inspection Ears: hearing grossly normal bilaterally Eyes: General: appearance normal, both eyes and all related structures Neck: Neck: normal visual inspection and full ROM Chest: Chest palpation & inspection: normal inspection of the chest and normal palpation of entire chest wall Resp: Effort & Inspection: normal respiratory effort and able to speak in complete sentences Cardio: Jugular venous distension: no JVD and JVD GI: Inspection: normal to inspection Back/Spine/Pelvis: Back: no CVA tenderness Skin: General skin exam: normal color and no rashes or lesions noted Neuro: General: oriented to person, oriented to place, oriented to time and patient oriented x3 Coordination: [id number] test normal Extrem: General: normal to inspection Other: the patient is awake alert oriented with improving left-sided hemiparesis Psych: Appearance: grossly normal Objective Data Vital Signs Vital Signs: Vital Signs - 24 hr 06/15/20 14:00 06/15/20 20:00 06/15/20 22:00 Temperature 36.8 C 36.3 C L Pulse Rate 73 69 69 Respiratory Rate 18 18 18 Blood Pressure 116/56 L 125/46 L Pulse Oximetry 98 97 97 06/16/20 06:00 Temperature 36.7 C Pulse Rate 73 Respiratory Rate 20 Blood Pressure 146/62 H Pulse Oximetry 98 Intake/Output Intake/Output: Intake & Output 06/13/20 06/14/20 06/15/20 06/16/20 23:59 23:59 23:59 23:59 Intake Total 960 680 720 240 Balance 960 680 720 240 Meds/Results Medications: Active Medications Generic Name Dose Route Start Last Admin Trade Name Erinn PRN Reason Stop Dose Admin Acetaminophen 500 mg 06/11/20 20:19 06/15/20 20:30 Tylenol Tablet PO 500 mg Q6H PRN Administration Mild Pain (1-3) or Fever Aspirin 81 mg 06/08/20 09:00 06/16/20 08:49 Aspirin Chewable PO 81 mg DAILY RJ Administration Atorvastatin Calcium 40 mg 06/07/20 21:00 06/15/20 20:25 Lipitor PO 40 mg HS RJ Administration Clopidogrel Bisulfate 75 mg 06/08/20 09:00 06/16/20 08:49 Plavix PO 75 mg DAILY RJ Administration Lisinopril 10 mg 06/08/20 09:00 06/16/20 08:49 Prinivil PO 10 mg DAILY RJ Administration Multivitamins/Minerals 1 tab 06/08/20 09:00 06/16/20 08:49 Centrum Silver PO 1 tab DAILY RJ Administration Polyethylene Glycol 17 gm 06/08/20 09:00 06/16/20 08:50 Miralax PO 17 gm QAM RJ Administration Vitamin D 1,000 units 06/08/20 09:00 06/16/20 08:49 Vitamin D PO 1,000 units DAILY RJ Administration Vitamin E 400 unit 06/08/20 09:00 06/16/20 08:49 Vitamin E PO 07/08/20 09:01 400 unit DAILY RJ Administration Progress Note: A&P Assessment and Plan (1) GERD (gastroesophageal reflux disease): Code(s): K21.9 - Gastro-esophageal reflux disease without esophagitis Status: Acute (2) Irritable bowel syndrome: Code(s): K58.9 - Irritable bowel syndrome without diarrhea Status: Acute (3) Dysarthria: Code(s): R47.1 - Dy
[2020-06-16 14:00] VITALS: BP 105/45; PULSE 77; RESP 18; TEMP 36.7; O2SAT 99
[2020-06-16] MEDS: ACETAMINOPHEN 500 MG TABLET PO (20:40)
[2020-06-16] MEDS: ATORVASTATIN 40 MG TABLET PO (20:41)
[2020-06-16 22:00] VITALS: BP 120/56; PULSE 76; RESP 18; TEMP 36.8; O2SAT 98
[2020-06-17 06:00] VITALS: BP 118/51; PULSE 88; RESP 18; TEMP 36.6; O2SAT 99
[2020-06-17] MEDS: CLOPIDOGREL BISULFATE 75 MG TABLET PO (09:28)
[2020-06-17] MEDS: VITAMIN E 400 UNIT CAPSULE PO (09:28)
[2020-06-17] MEDS: ASPIRIN 81 MG CHEWABLE TABLET PO (09:28)
[2020-06-17] MEDS: CHOLECALCIFEROL 1,000 UNITS TABLET 1000 UNITS PO (09:28)
[2020-06-17] MEDS: lisinopriL 10 MG TABLET PO (09:28)
[2020-06-17] MEDS: MULTIVITAMINS /C LUTEIN (CENTRUM SILVER) TABLET *BKC 1 TAB PO (09:30)
--- NOTE | 2020-06-17 11:34 | PCDIET ---
Nutrition Follow-Up Complete: Nutrition Diagnosis: Predicted excessive nutrient intake of sodium and saturated fats related to cardiovascular integrity as evidenced by cerebral vascular accident incident. Nutrition Goal: Pt. will adhere to sodium, potassium and fat intake recommendations from national guidelines. Pt. will understand DASH meal pattern recommendation. Goal in progress. Patient previously educated re: heart healthy diet. Recommend change in diet order from regular to heart healthy, given patient now consuming 100% of most meals. Last recorded weight is 66.1 kg. Recommend obtaining new weight. Bowel Motility: Last BM on 06/15/20, per nursing flowsheet. Labs Reviewed: Glu (112), BUN (22) Meds Noted: Lipitor, Plavix, Prinivil, MVI/minerals, Vitamin D, Vitamin E Additional Notes: No documented skin breakdown. Will continue to monitor with same goal. Nutrition Monitoring and Evaluation: Follow up in 7 days.
--- NOTE | 2020-06-17 13:34 | WPDNEURORHBP ---
Subjective Date/time seen: 06/17/20 13:34 Interval history: this very pleasant 70-year-old is here with the stroke which has left her left hemiparesis she is doing remarkably well walking with the him I can and walking quite a bit of distance She denies any headache nausea vomiting chest pain shortness of breath fever chills sore throat Review of Systems Review of Systems: All systems reviewed & are unremarkable except as noted in HPI and below Functional Status Ambulation Ability Ability to Ambulate 10 Feet: Standby Assistance Ability to Ambulate 50 Feet With 2 Turns: Standby Assistance Ability to Ambulate 150 Feet: Standby Assistance Ambulation Assistive Devices: Cane, Eb Transfers Ability Ability to Transfer In/Out of Chair: Contact Guard Exam Narrative: Exam Narrative: the patient is awake alert will order agent and place person has normal speech and language functions normal cranial examination with moderate left hemiparesis for the left upper extremity is all more than the right lower extremity needing assistance still in the activities of daily living next Head is normocephalic neck is supple chronic 6 and Brudzinski signs are negative ENT examination is normal lungs are clear abdomen is not tender extremities revealed no deformities Objective Data Vital Signs Vital Signs: Vital Signs - 24 hr 06/16/20 14:00 06/16/20 22:00 06/17/20 06:00 Temperature 36.7 C 36.8 C 36.6 C Pulse Rate 77 76 88 Respiratory Rate 18 18 18 Blood Pressure 105/45 L 120/56 L 118/51 L Pulse Oximetry 99 98 99 Intake/Output Intake/Output: Intake & Output 06/14/20 06/15/20 06/16/20 06/17/20 23:59 23:59 23:59 23:59 Intake Total 680 720 480 240 Balance 680 720 480 240 Meds/Results Medications: Active Medications Generic Name Dose Route Start Last Admin Trade Name Freq PRN Reason Stop Dose Admin Acetaminophen 500 mg 06/11/20 20:19 06/16/20 20:40 Acetaminophen 500 Mg Tablet PO 500 mg Q6H PRN Administration Mild Pain (1-3) or Fever Aspirin 81 mg 06/08/20 09:00 06/17/20 09:28 Aspirin Chewable PO 81 mg DAILY RJ Administration Atorvastatin Calcium 40 mg 06/07/20 21:00 06/16/20 20:41 Lipitor PO 40 mg HS RJ Administration Clopidogrel Bisulfate 75 mg 06/08/20 09:00 06/17/20 09:28 Plavix PO 75 mg DAILY RJ Administration Lisinopril 10 mg 06/08/20 09:00 06/17/20 09:28 Prinivil PO 10 mg DAILY RJ Administration Multivitamins/Minerals 1 tab 06/08/20 09:00 06/17/20 09:30 Centrum Silver PO 1 tab DAILY RJ Administration Polyethylene Glycol 17 gm 06/08/20 09:00 06/17/20 09:27 Miralax PO Not Given QAM RJ Vitamin D 1,000 units 06/08/20 09:00 06/17/20 09:28 Vitamin D PO 1,000 units DAILY RJ Administration Vitamin E 400 unit 06/08/20 09:00 06/17/20 09:28 Vitamin E PO 07/08/20 09:01 400 unit DAILY RJ Administration Progress Note: A&P Assessment and Plan (1) GERD (gastroesophageal reflux disease): Code(s): K21.9 - Gastro-esophageal reflux disease without esophagitis Status: Acute (2) Irritable bowel syndrome: Code(s): K58.9 - Irritable bowel syndrome without diarrhea Status: Acute (3) Left hemiparesis: Code(s): G81.94 - Hemiplegia, unspecified affecting left nondominant side Status: Acute (4) Stroke: Code(s): I63.9 - Cerebral infarction, unspecified Status: Acute Additional Plan we will continue present medical management PT OT and gait training
[2020-06-17 14:00] VITALS: BP 125/48; PULSE 79; RESP 20; TEMP 36.5; O2SAT 99
[2020-06-17 20:23] VITALS: BP 105/49; PULSE 72; RESP 18; TEMP 36.8; O2SAT 98
[2020-06-17] MEDS: ACETAMINOPHEN 500 MG TABLET PO (20:25)
[2020-06-17] MEDS: ATORVASTATIN 40 MG TABLET PO (20:26)
[2020-06-18] MEDS: ACETAMINOPHEN 500 MG TABLET PO ×2 (03:54→20:01)
[2020-06-18 04:57] VITALS: BP 108/58; PULSE 82; RESP 18; TEMP 36.6; O2SAT 94
[2020-06-18] MEDS: ASPIRIN 81 MG CHEWABLE TABLET PO (09:31)
[2020-06-18] MEDS: polyethylene glycoL 3350 17 GM POWD.PACK PO (09:31)
[2020-06-18] MEDS: MULTIVITAMINS /C LUTEIN (CENTRUM SILVER) TABLET *BKC 1 TAB PO (09:31)
[2020-06-18] MEDS: VITAMIN E 400 UNIT CAPSULE PO (09:31)
[2020-06-18] MEDS: CHOLECALCIFEROL 1,000 UNITS TABLET 1000 UNITS PO (09:32)
[2020-06-18] MEDS: CLOPIDOGREL BISULFATE 75 MG TABLET PO (09:32)
[2020-06-18] MEDS: lisinopriL 10 MG TABLET PO (09:32)
--- NOTE | 2020-06-18 13:41 | WPDNEURORHBP ---
Subjective Date/time seen: 06/18/20 13:41 70 YEARS OLD HAS BEEN ADMITTED TO THE REHAB FLOOR WITH LEFT HEMIPARESIS AND HAS BEEN INVOLVED IN THE PHYSICAL THERAPY ON OCCUPATIONAL THERAPY ON A REGULAR BASIS HER ROUTINE LAB IS NORMAL EXCEPT BUN MILDLY ELEVATED Review of Systems Review of Systems: All systems reviewed & are unremarkable except as noted in HPI and below Functional Status Ambulation Ability Ability to Ambulate 10 Feet: Independent Ability to Ambulate 50 Feet With 2 Turns: Independent Ability to Ambulate 150 Feet: Standby Assistance Ambulation Assistive Devices: Cane, Eb Transfers Ability Ability to Transfer In/Out of Chair: Independent Exam Narrative: Exam Narrative: EXAMINATION TODAY REVEALS HER TO BE AWAKE ALERT COOPERATIVE ORIENTED X3 WITH NORMAL AND FULL SPEECH EAR NOSE THROAT EXAMINATION NORMAL NECK IS SUPPLE HEART REGULAR LUNGS CLEAR NEUROLOGICAL EXAMINATION REVEALS HER TO HAVE LEFT HEMIPARESIS Objective Data Vital Signs Vital Signs: Vital Signs - 24 hr 06/17/20 14:00 06/17/20 20:23 06/18/20 04:57 Temperature 36.5 C 36.8 C 36.6 C Pulse Rate 79 72 82 Respiratory Rate 20 18 18 Blood Pressure 125/48 L 105/49 L 108/58 L Pulse Oximetry 99 98 94 Intake/Output Intake/Output: Intake & Output 06/15/20 06/16/20 06/17/20 06/18/20 23:59 23:59 23:59 23:59 Intake Total 720 480 720 360 Balance 720 480 720 360 Meds/Results Medications: Active Medications Generic Name Dose Route Start Last Admin Trade Name Freq PRN Reason Stop Dose Admin Acetaminophen 500 mg 06/11/20 20:19 06/18/20 03:54 Acetaminophen 500 Mg Tablet PO 500 mg Q6H PRN Administration Mild Pain (1-3) or Fever Aspirin 81 mg 06/08/20 09:00 06/18/20 09:31 Aspirin Chewable PO 81 mg DAILY RJ Administration Atorvastatin Calcium 40 mg 06/07/20 21:00 06/17/20 20:26 Lipitor PO 40 mg HS RJ Administration Clopidogrel Bisulfate 75 mg 06/08/20 09:00 06/18/20 09:32 Plavix PO 75 mg DAILY RJ Administration Lisinopril 10 mg 06/08/20 09:00 06/18/20 09:32 Prinivil PO 10 mg DAILY RJ Administration Multivitamins/Minerals 1 tab 06/08/20 09:00 06/18/20 09:31 Centrum Silver PO 1 tab DAILY RJ Administration Polyethylene Glycol 17 gm 06/08/20 09:00 06/18/20 09:31 Miralax PO 17 gm QAM RJ Administration Vitamin D 1,000 units 06/08/20 09:00 06/18/20 09:32 Vitamin D PO 1,000 units DAILY RJ Administration Vitamin E 400 unit 06/08/20 09:00 06/18/20 09:31 Vitamin E PO 07/08/20 09:01 400 unit DAILY RJ Administration Progress Note: A&P Assessment and Plan (1) GERD (gastroesophageal reflux disease): Code(s): K21.9 - Gastro-esophageal reflux disease without esophagitis Status: Acute (2) Irritable bowel syndrome: Code(s): K58.9 - Irritable bowel syndrome without diarrhea Status: Acute (3) Dysarthria: Code(s): R47.1 - Dysarthria and anarthria Status: Acute (4) Left hemiparesis: Code(s): G81.94 - Hemiplegia, unspecified affecting left nondominant side Status: Acute (5) Stroke: Code(s): I63.9 - Cerebral infarction, unspecified Status: Acute Additional Plan WILL CONTINUE WITH THE PHYSICAL THERAPY AND OCCUPATIONAL THERAPY SUCH
[2020-06-18 14:00] VITALS: BP 112/48; PULSE 74; RESP 16; TEMP 36.9; O2SAT 98
[2020-06-18] MEDS: ATORVASTATIN 40 MG TABLET PO (20:01)
[2020-06-18 21:06] VITALS: BP 122/56; PULSE 79; RESP 18; TEMP 36.5; O2SAT 99
[2020-06-19 05:11] VITALS: BP 106/50; PULSE 71; RESP 18; TEMP 36.6; O2SAT 98
[2020-06-19 08:00] VITALS: PULSE 71; RESP 18; O2SAT 98
[2020-06-19] MEDS: CHOLECALCIFEROL 1,000 UNITS TABLET 1000 UNITS PO (08:21)
[2020-06-19] MEDS: CLOPIDOGREL BISULFATE 75 MG TABLET PO (08:21)
[2020-06-19] MEDS: ASPIRIN 81 MG CHEWABLE TABLET PO (08:21)
[2020-06-19] MEDS: VITAMIN E 400 UNIT CAPSULE PO (08:21)
[2020-06-19] MEDS: MULTIVITAMINS /C LUTEIN (CENTRUM SILVER) TABLET *BKC 1 TAB PO (08:21)
[2020-06-19] MEDS: lisinopriL 10 MG TABLET PO (08:21)
[2020-06-19] MEDS: polyethylene glycoL 3350 17 GM POWD.PACK PO (08:22)
[2020-06-19 14:00] VITALS: BP 140/60; PULSE 72; RESP 18; TEMP 36.4; O2SAT 98
[2020-06-19] MEDS: ATORVASTATIN 40 MG TABLET PO (19:59)
[2020-06-19] MEDS: ACETAMINOPHEN 500 MG TABLET PO (20:00)
[2020-06-19 22:00] VITALS: BP 138/90; PULSE 86; RESP 20; TEMP 36.7; O2SAT 95
[2020-06-20] MEDS: ACETAMINOPHEN 500 MG TABLET PO (05:16)
[2020-06-20 06:00] VITALS: BP 105/55; PULSE 72; RESP 18; TEMP 36.6; O2SAT 100
[2020-06-20] MEDS: MULTIVITAMINS /C LUTEIN (CENTRUM SILVER) TABLET *BKC 1 TAB PO (08:30)
[2020-06-20] MEDS: CLOPIDOGREL BISULFATE 75 MG TABLET PO (08:30)
[2020-06-20] MEDS: VITAMIN E 400 UNIT CAPSULE PO (08:30)
[2020-06-20] MEDS: polyethylene glycoL 3350 17 GM POWD.PACK PO (08:30)
[2020-06-20] MEDS: lisinopriL 10 MG TABLET PO (08:30)
[2020-06-20] MEDS: CHOLECALCIFEROL 1,000 UNITS TABLET 1000 UNITS PO (08:30)
[2020-06-20] MEDS: ASPIRIN 81 MG CHEWABLE TABLET PO (08:30)
--- NOTE | 2020-06-20 10:09 | WPDNEURORHBP ---
Subjective Date/time seen: 06/20/20 10:09 70 YEARS OLD ADMITTED TO THE REHAB FLOOR WITH LEFT HEMIPARESIS AND HAS BEEN INVOLVED IN THE PHYSICAL THERAPY ALSO OCCUPATIONAL THERAPY AT PRESENT ABLE TO AMBULATE INDEPENDENTLY WITH HEMICANE, ROUTINE LAB ON 7TH NORMAL WITH TRIGLYCERIDES OF 122 CHOLESTEROL OF 104 AND LDL 49 WITH HDL 42 Review of Systems Review of Systems: All systems reviewed & are unremarkable except as noted in HPI and below Functional Status Ambulation Ability Ability to Ambulate 10 Feet: Independent Ability to Ambulate 50 Feet With 2 Turns: Independent Ability to Ambulate 150 Feet: Standby Assistance Ambulation Assistive Devices: Cane, Eb Transfers Ability Ability to Transfer In/Out of Chair: Independent Exam Narrative: Exam Narrative: EXAMINATION REVEALS HER TO BE AWAKE ALERT IN NO DISTRESS, ORIENTED X3, NORMAL AND FULL SPEECH, EAR NOSE THROAT EXAMINATION NORMAL, NECK WITH NO RESTRICTION OF THE RANGE OF MOTIONS,HEART REGULAR WITH NO MURMUR, LUNGS CLEAR WITH NO CREPITATION,ABDOMEN IS SOFT AND NEUROLOGICAL EXAMINATION UNCHANGED Objective Data Vital Signs Vital Signs: Vital Signs - 24 hr 06/19/20 14:00 06/19/20 22:00 06/20/20 06:00 Temperature 36.4 C 36.7 C 36.6 C Pulse Rate 72 86 72 Respiratory Rate 18 20 18 Blood Pressure 140/60 138/90 105/55 L Pulse Oximetry 98 95 100 Intake/Output Intake/Output: Intake & Output 06/17/20 06/18/20 06/19/20 06/20/20 23:59 23:59 23:59 23:59 Intake Total 720 840 720 240 Balance 720 840 720 240 Meds/Results Medications: Active Medications Generic Name Dose Route Start Last Admin Trade Name Kaelq PRN Reason Stop Dose Admin Acetaminophen 500 mg 06/11/20 20:19 06/20/20 05:16 Acetaminophen 500 Mg Tablet PO 500 mg Q6H PRN Administration Mild Pain (1-3) or Fever Aspirin 81 mg 06/08/20 09:00 06/20/20 08:30 Aspirin Chewable PO 81 mg DAILY RJ Administration Atorvastatin Calcium 40 mg 06/07/20 21:00 06/19/20 19:59 Lipitor PO 40 mg HS RJ Administration Clopidogrel Bisulfate 75 mg 06/08/20 09:00 06/20/20 08:30 Plavix PO 75 mg DAILY RJ Administration Lisinopril 10 mg 06/08/20 09:00 06/20/20 08:30 Prinivil PO 10 mg DAILY RJ Administration Multivitamins/Minerals 1 tab 06/08/20 09:00 06/20/20 08:30 Centrum Silver PO 1 tab DAILY RJ Administration Polyethylene Glycol 17 gm 06/08/20 09:00 06/20/20 08:30 Miralax PO 17 gm QAM RJ Administration Vitamin D 1,000 units 06/08/20 09:00 06/20/20 08:30 Vitamin D PO 1,000 units DAILY RJ Administration Vitamin E 400 unit 06/08/20 09:00 06/20/20 08:30 Vitamin E PO 07/08/20 09:01 400 unit DAILY RJ Administration Progress Note: A&P Assessment and Plan (1) GERD (gastroesophageal reflux disease): Code(s): K21.9 - Gastro-esophageal reflux disease without esophagitis Status: Acute (2) Irritable bowel syndrome: Code(s): K58.9 - Irritable bowel syndrome without diarrhea Status: Acute (3) Dysarthria: Code(s): R47.1 - Dysarthria and anarthria Status: Acute (4) Left hemiparesis: Code(s): G81.94 - Hemiplegia, unspecified affecting left nondominant side Status: Acute (5) Stroke: Code(s): I63.9 - Cerebral infarction, unspecified Status: Acute Additional Plan CONTINUE WITH THE THERAPY SUCH
[2020-06-20 14:00] VITALS: BP 119/57; PULSE 80; RESP 18; TEMP 36.2; O2SAT 97
[2020-06-20] MEDS: ATORVASTATIN 40 MG TABLET PO (20:19)
[2020-06-20 22:00] VITALS: BP 106/81; PULSE 89; RESP 17; TEMP 36.4; O2SAT 99
[2020-06-21] MEDS: ACETAMINOPHEN 500 MG TABLET PO ×2 (03:30→20:27)
[2020-06-21 06:00] VITALS: BP 113/60; PULSE 70; RESP 17; TEMP 36.2; O2SAT 97
[2020-06-21 10:00] VITALS: PULSE 68; RESP 18; O2SAT 97
[2020-06-21] MEDS: lisinopriL 10 MG TABLET PO (10:06)
[2020-06-21] MEDS: VITAMIN E 400 UNIT CAPSULE PO (10:06)
[2020-06-21] MEDS: ASPIRIN 81 MG CHEWABLE TABLET PO (10:06)
[2020-06-21] MEDS: polyethylene glycoL 3350 17 GM POWD.PACK PO (10:06)
[2020-06-21] MEDS: MULTIVITAMINS /C LUTEIN (CENTRUM SILVER) TABLET *BKC 1 TAB PO (10:06)
[2020-06-21] MEDS: CLOPIDOGREL BISULFATE 75 MG TABLET PO (10:06)
[2020-06-21] MEDS: CHOLECALCIFEROL 1,000 UNITS TABLET 1000 UNITS PO (10:07)
--- NOTE | 2020-06-21 13:26 | WPDNEURORHBP ---
Subjective Date/time seen: 06/21/20 13:26 Interval history: this 70-year-old is here after having had the stroke with left hemiparesis but he is really doing remarkably well rather she has reviewed remarkably well and walking 120 feet with the eb cane denies any headache nausea vomiting chest pain shortness of breath and probably will be ready to be discharged in couple of days Review of Systems Review of Systems: All systems reviewed & are unremarkable except as noted in HPI and below Functional Status Ambulation Ability Ability to Ambulate 10 Feet: Independent Ability to Ambulate 50 Feet With 2 Turns: Independent Ability to Ambulate 150 Feet: Independent Ambulation Assistive Devices: Cane, Eb Transfers Ability Ability to Transfer In/Out of Chair: Independent Exam Narrative: Exam Narrative: patient is awake alert well oriented time place and person with significantly improving left-sided hemiparesis Head is normocephalic and examination is normal lungs are clear neck is supple no bruits are noted cardiovascular examination is negative abdomen is is soft not tender extremities reveal or deformities Objective Data Vital Signs Vital Signs: Vital Signs - 24 hr 06/20/20 14:00 06/20/20 22:00 06/21/20 06:00 Temperature 36.2 C L 36.4 C L 36.2 C L Pulse Rate 80 89 70 Respiratory Rate 18 17 17 Blood Pressure 119/57 L 106/81 113/60 Pulse Oximetry 97 99 97 06/21/20 10:00 Temperature Pulse Rate 68 Respiratory Rate 18 Blood Pressure Pulse Oximetry 97 Intake/Output Intake/Output: Intake & Output 06/18/20 06/19/20 06/20/20 06/21/20 23:59 23:59 23:59 23:59 Intake Total 840 720 720 240 Balance 840 720 720 240 Meds/Results Medications: Active Medications Generic Name Dose Route Start Last Admin Trade Name Freq PRN Reason Stop Dose Admin Acetaminophen 500 mg 06/11/20 20:19 06/21/20 03:30 Acetaminophen 500 Mg Tablet PO 500 mg Q6H PRN Administration Mild Pain (1-3) or Fever Aspirin 81 mg 06/08/20 09:00 06/21/20 10:06 Aspirin Chewable PO 81 mg DAILY RJ Administration Atorvastatin Calcium 40 mg 06/07/20 21:00 06/20/20 20:19 Lipitor PO 40 mg HS RJ Administration Clopidogrel Bisulfate 75 mg 06/08/20 09:00 06/21/20 10:06 Plavix PO 75 mg DAILY RJ Administration Lisinopril 10 mg 06/08/20 09:00 06/21/20 10:06 Prinivil PO 10 mg DAILY RJ Administration Multivitamins/Minerals 1 tab 06/08/20 09:00 06/21/20 10:06 Centrum Silver PO 1 tab DAILY RJ Administration Polyethylene Glycol 17 gm 06/08/20 09:00 06/21/20 10:06 Miralax PO 17 gm QAM RJ Administration Vitamin D 1,000 units 06/08/20 09:00 06/21/20 10:07 Vitamin D PO 1,000 units DAILY RJ Administration Vitamin E 400 unit 06/08/20 09:00 06/21/20 10:06 Vitamin E PO 07/08/20 09:01 400 unit DAILY RJ Administration Progress Note: A&P Assessment and Plan (1) GERD (gastroesophageal reflux disease): Code(s): K21.9 - Gastro-esophageal reflux disease without esophagitis Status: Acute (2) Irritable bowel syndrome: Code(s): K58.9 - Irritable bowel syndrome without diarrhea Status: Acute (3) Dysarthria: Code(s): R47.1 - Dysarthria and anarthria Status: Acute (4) Left hemiparesis: Code(s): G81.94 - Hemiplegia, unspecified affecting left nondominant side Status: Acute (5) Stroke: Code(s): I63.9 - Cerebral infarction, unspecified Status: Acute Additional Plan discussed in the team conference the daughter was on the telephone we will continue the present medical management PT OT and gait training and discharge planning for June 23, 2020
[2020-06-21 14:00] VITALS: BP 122/68; PULSE 72; RESP 18; TEMP 36.3; O2SAT 97
[2020-06-21 20:00] VITALS: O2SAT 97
[2020-06-21] MEDS: ATORVASTATIN 40 MG TABLET PO (20:25)
[2020-06-21 22:00] VITALS: BP 128/90; PULSE 97; RESP 20; TEMP 36.4; O2SAT 86
[2020-06-22] MEDS: ACETAMINOPHEN 500 MG TABLET PO ×3 (03:44→21:56)
[2020-06-22 04:58] LABS: Basophils Percent Auto 0.5 % (0.2-1.2); Eosinophils Absolute Auto 0.1 K/mm3 (0-0.3); Hematocrit 38.6 % (37.0-47.0); Hemoglobin 13.3 g/dL (12.0-15.0); Immature Granulocyte Absolute 0.02 K/mm3 (0.00-0.031); Immature Granulocyte Percent A 0.3 % (0-0.5); Lymphocytes Absolute Auto 1.98 K/mm3 (0.9-3.2); Lymphocytes Percent Auto 30.7 % (18.3-44.2); Mean Corpuscular HGB Conc 34.5 g/dl (32-36); Mean Corpuscular Hemoglobin 32.8 pg (26-34); Mean Corpuscular Volume 95.3 fl (80-100); Mean Platelet Volume 9.4 fl (7.4-10.4); Monocytes Absolute Auto 0.5 K/mm3 (0.1-0.6); Monocytes Percent Auto 8.4 % (2.6-8.5); Neutrophils Absolute Auto 3.8 K/mm3 (1.3-6.7); Neutrophils Percent Auto 58.1 % (45.5-73.1); Platelet Count Result 199 k/mm3 (150-375); Red Blood Count 4.05 M/mm3 (4.2-5.4); Red Cell Distribution Width 11.8 % (11.5-14.5); White Blood Count 6.5 K/mm3 (4.5-10.0)
[2020-06-22 05:04] VITALS: BP 116/84; PULSE 68; RESP 14; TEMP 36.5; O2SAT 99
[2020-06-22 05:11] LABS: Anion Gap 3 mmol/L (8-16); Blood Urea Nitrogen 21 mg/dL (7-17); Calcium 9.4 mg/dL (8.4-10.2); Carbon Dioxide 32 mmol/L (22-30); Chloride 107 mmol/L (98-107); Estimated CRCL calculation 53 ml/min; Estimated Glomerular Filt Rate > 60; Glucose 109 mg/dL (65-105); Potassium 4.3 mmol/L (3.4-5.0); Sodium 142 mmol/L (137-145)
[2020-06-22] MEDS: CLOPIDOGREL BISULFATE 75 MG TABLET PO (08:14)
[2020-06-22] MEDS: lisinopriL 10 MG TABLET PO (08:14)
[2020-06-22] MEDS: ASPIRIN 81 MG CHEWABLE TABLET PO (08:15)
[2020-06-22] MEDS: VITAMIN E 400 UNIT CAPSULE PO (08:15)
[2020-06-22] MEDS: MULTIVITAMINS /C LUTEIN (CENTRUM SILVER) TABLET *BKC 1 TAB PO (08:16)
[2020-06-22] MEDS: CHOLECALCIFEROL 1,000 UNITS TABLET 1000 UNITS PO (08:17)
[2020-06-22 14:00] VITALS: BP 107/50; PULSE 79; RESP 18; TEMP 36.6; O2SAT 98
--- NOTE | 2020-06-22 15:13 | WPDNEURORHBP ---
Subjective Date/time seen: 06/22/20 15:13 Interval history: this 70-year-old woman is here status post stroke and has significantly improved in her left hemiparesis however the arm on the left side is not quite at par she is walking remarkably well quite bit of distance and ready to be discharged tomorrow with home health to follow She denies any headache nausea vomiting chest pain shortness of breath fever chills sore throat Review of Systems Review of Systems: All systems reviewed & are unremarkable except as noted in HPI and below Functional Status Ambulation Ability Ability to Ambulate 10 Feet: Independent Ability to Ambulate 50 Feet With 2 Turns: Independent Ability to Ambulate 150 Feet: Independent Ambulation Assistive Devices: Cane, Eb Transfers Ability Ability to Transfer In/Out of Chair: Independent Exam Narrative: Exam Narrative: patient is awake alert well oriented in time place and person has normal speech and language functions and improved left-sided hemiparesis where the leg has improved significantly than the upper extremity Head is normocephalic he Diederich examination is normal eye examination is normal lungs are clear cardiovascular examination negative extremities are free of deformity Objective Data Vital Signs Vital Signs: Vital Signs - 24 hr 06/21/20 20:00 06/21/20 22:00 06/22/20 05:04 Temperature 36.4 C L 36.5 C Pulse Rate 97 68 Respiratory Rate 20 14 Blood Pressure 128/90 116/84 Pulse Oximetry 97 86 L 99 06/22/20 14:00 Temperature 36.6 C Pulse Rate 79 Respiratory Rate 18 Blood Pressure 107/50 L Pulse Oximetry 98 Intake/Output Intake/Output: Intake & Output 06/19/20 06/20/20 06/21/20 06/22/20 23:59 23:59 23:59 23:59 Intake Total 720 720 720 600 Balance 720 720 720 600 Meds/Results Medications: Active Medications Generic Name Dose Route Start Last Admin Trade Name Freq PRN Reason Stop Dose Admin Acetaminophen 500 mg 06/11/20 20:19 06/22/20 07:21 Acetaminophen 500 Mg Tablet PO 500 mg Q6H PRN Administration Mild Pain (1-3) or Fever Aspirin 81 mg 06/08/20 09:00 06/22/20 08:15 Aspirin Chewable PO 81 mg DAILY RJ Administration Atorvastatin Calcium 40 mg 06/07/20 21:00 06/21/20 20:25 Lipitor PO 40 mg HS RJ Administration Clopidogrel Bisulfate 75 mg 06/08/20 09:00 06/22/20 08:14 Plavix PO 75 mg DAILY RJ Administration Lisinopril 10 mg 06/08/20 09:00 06/22/20 08:14 Prinivil PO 10 mg DAILY RJ Administration Multivitamins/Minerals 1 tab 06/08/20 09:00 06/22/20 08:16 Centrum Silver PO 1 tab DAILY RJ Administration Polyethylene Glycol 17 gm 06/08/20 09:00 06/21/20 10:06 Miralax PO 17 gm QAM RJ Administration Vitamin D 1,000 units 06/08/20 09:00 06/22/20 08:17 Vitamin D PO 1,000 units DAILY RJ Administration Vitamin E 400 unit 06/08/20 09:00 06/22/20 08:15 Vitamin E PO 07/08/20 09:01 400 unit DAILY RJ Administration Labs Labs: Laboratory Results - last 24 hr 06/22/20 06/22/20 04:36 04:36 WBC 6.5 RBC 4.05 L Hgb 13.3 Hct 38.6 MCV 95.3 MCH 32.8 MCHC 34.5 RDW 11.8 Plt Count 199 MPV 9.4 Immature Gran % (Auto) 0.3 Neut % (Auto) 58.1 Lymph % (Auto) 30.7 [place] % (Auto) 8.4 Eos % (Auto) 2.0 Baso % (Auto) 0.5 Lymph # (Auto) 1.98 [place] # (Auto) 0.5 Eos # (Auto) 0.1 Baso # (Auto) 0.0 Abs Immat Gran (auto) 0.02 Absolute Neuts (auto) 3.8 Absolute Nucleated RBC 0.0 Nucleated RBC % 0.0 Sodium 142 Potassium 4.3 Chloride 107 Carbon Dioxide 32 H Anion Gap 3 L BUN 21 H Creatinine 0.70 Estim Creat Clear Calc 53 Estimated GFR > 60 Glucose 109 H Calcium 9.4 Progress Note: A&P Assessment and Plan (1) GERD (gastroesophageal reflux disease): Code(s): K21.9 - Gastro-esophageal reflux disease without esophagitis Status: Acute (2) Irritable bowel syndrome:
[2020-06-22] MEDS: polyethylene glycoL 3350 17 GM POWD.PACK PO (17:22)
[2020-06-22 20:05] VITALS: BP 113/46; PULSE 83; RESP 18; TEMP 37; O2SAT 97
[2020-06-22] MEDS: ATORVASTATIN 40 MG TABLET PO (20:26)
[2020-06-23 04:54] VITALS: BP 123/47; PULSE 74; RESP 18; TEMP 36.3; O2SAT 98
[2020-06-23] MEDS: MULTIVITAMINS /C LUTEIN (CENTRUM SILVER) TABLET *BKC 1 TAB PO (08:06)
[2020-06-23] MEDS: CHOLECALCIFEROL 1,000 UNITS TABLET 1000 UNITS PO (08:06)
[2020-06-23] MEDS: CLOPIDOGREL BISULFATE 75 MG TABLET PO (08:06)
[2020-06-23] MEDS: VITAMIN E 400 UNIT CAPSULE PO (08:06)
[2020-06-23] MEDS: lisinopriL 10 MG TABLET PO (08:06)
[2020-06-23] MEDS: ASPIRIN 81 MG CHEWABLE TABLET PO (08:07)
--- NOTE | 2020-06-25 15:15 | PM.DS ---
DS: Admitting Diagnosis Admitting Diagnosis Admitting Diagnosis: cva DS: Discharge Diagnosis Discharge Diagnosis (1) GERD (gastroesophageal reflux disease): Code(s): K21.9 - Gastro-esophageal reflux disease without esophagitis Status: Acute (2) Irritable bowel syndrome: Code(s): K58.9 - Irritable bowel syndrome without diarrhea Status: Acute (3) Dysarthria: Code(s): R47.1 - Dysarthria and anarthria Status: Acute (4) Left hemiparesis: Code(s): G81.94 - Hemiplegia, unspecified affecting left nondominant side Status: Acute (5) Stroke: Code(s): I63.9 - Cerebral infarction, unspecified Status: Acute DS: Summary Hospital Course Reason for hospitalization: this pleasant 70-year-old was admitted primarily because of having a stroke with left-sided hemiparesis she received the physical therapy occupational therapy and gait training and medical management of her underlying conditions and was able to achieve significant quality improvement measures to be able to sent home with home health to follow on the follow-up with the Neurology Hospital Course: the quality improvement measures were as follows Eating setup, oral hygiene independent, toileting independent, bathing setup, upper body dressing independent, lower body dressing independent, footwear independent, rolling in bed independent, sitting to lying independent, lying to sitting independent, sit to stand independent, chair transfers independent, toilet transfers independent, car transfers independent, walking 10 feet independent, walking 50 feet 3 2 turns independent, walking 150 feet independent, walking 10 feet uneven surfaces independent, cover step independent, 4 steps independent, 12 steps independent, picking of object independent, wheelchair 50 feet independent, wheelchair 150 feet independent The patient was sent home with home health to follow. Falls were none during the course of hospitalization The patient was significantly improved and stable at the time of the discharge to go home Time Spent with Patient Time attestation: Total time spent providing and/or coordinating discharge services: Exam Narrative: Exam Narrative: she is awake and alert well oriented stable enough to be discharged to home eyes ears nose throat normal neck is supple lungs are clear to auscultation cardiovascular examination is stable and negative abdomen is soft not tender extremities will or deformity there is significant improvement in her left hemiparesis and overall ability to go home Discharge Plan Discharge Attending physician on discharge: Osbaldo Ford Discharging Clinician: Osbaldo Ford Anticipated Discharge Date/Time: 06/23/20 15:16 Patient Disposition: Home Health Service Activity: may shower and no driving Diet: as tolerated Discharge Instructions: Per Care Coordination: Patient will have [facility] for senior care, PT, OT,bath aide and ST services. They can be called [phone]. Patient Instructions: Antibiotic Form, Pain Management (GEN), Safe Use of Anticoagulants (GEN), Stroke (GEN) Stand Alone Forms: General Discharge Information Follow-up/Referrals: pcp [Other] - Call for Appointment (No follow up appointments were scheduled from [facility]. We recommend you see your primary care physician within a couple of weeks of discharge from [facility]) Osbaldo Ford MD [Physician] - (follow up with appointment in 2 months (Neurology/Stroke)) Joce,MD Mynor [Primary Care Provider] - (follow up with appointment in one to two weeks after discharge from [facility]) Discharge Medications: New polyethylene glycol 3350 [Miralax] 17 gram Powder In Packet 17 g PO QAM Qty: 30 RF: 0 acetaminophen 500 mg Tablet 500 mg PO Q6H PRN (Reason: Mild Pain (1-3) Or Fever) Qty: 0 RF: 0 Continued aspirin 81 mg Tablet,Chewable 81 mg PO DAILY RF: 0 vitamin E 600 unit Capsule 600 unit P
== END 2020-06-23 13:00 | disposition home health service (06) | DRG 57 ==
PROVIDERS: Admitting Provider Psychiatry & Neurology Neurology; PCP Internal Medicine; Visit Provider Psychiatry & Neurology Neurology
DX: I69.354 Hemiplegia and hemiparesis following cerebral infarction affecting left non-dominant side (principal); I69.322 Dysarthria following cerebral infarction; K58.9 Irritable bowel syndrome, unspecified; K21.9 Gastro-esophageal reflux disease without esophagitis; M81.0 Age-related osteoporosis without current pathological fracture; M51.34 Other intervertebral disc degeneration, thoracic region
CPT/HCPCS: 36415; 80048; 80061; 85025; 92507; 92523; 92526; 92610; 97110; 97112; 97116; 97161; 97165; 97530; 97535; 97542; A9270; J1650